=== PATIENT | male | born 2000 | race Hispanic/Latino ===

== ENCOUNTER 2021-02-01 22:41 | Emergency (ER) | payer OTHER ==
[~2021-02-01] VITALS: Ht 170.2 cm; Wt 67.1 kg
[2021-02-02] MEDS ORDERED: IBUPROFEN 600 MG TAB PO STA (00:19)
[2021-02-02] MEDS ORDERED: IBUPROFEN600 MG PO (00:24)
[2021-02-02] MEDS ORDERED: IBUPROFEN 600 MG TAB ONE (00:41)
[2021-02-02 00:43] VITALS: BP 144/76
== END 2021-02-02 00:43 | disposition home or self-care (01) ==
LOC: FSED 02-02 00:11
DX: S83.412A Sprain of medial collateral ligament of left knee, initial encounter (principal); Y93.66 Activity, soccer; Y92.322 Soccer field as the place of occurrence of the external cause
CPT/HCPCS: 99283